=== PATIENT | male | born 1990 | race Caucasian/White ===

== ENCOUNTER 2021-03-15 16:10 | Emergency (ER) | payer OTHER ==
[2021-03-15] MEDS ORDERED: NORCO 5-325 TA1 EACH PO (17:44)
== END 2021-03-15 18:00 | disposition home or self-care (01) ==
LOC: FER 16:10
DX: S62.512A Displaced fracture of proximal phalanx of left thumb, initial encounter for closed fracture (principal); W21.03XA Struck by baseball, initial encounter; Y92.830 Public park as the place of occurrence of the external cause
CPT/HCPCS: 73130